=== PATIENT | female | born 1950 | race Caucasian/White ===

== ENCOUNTER 2017-02-19 11:22 | Emergency (ER) | payer OTHER ==
[~2017-02-19 11:22] MED LIST: CARDU2 PO; CENTRUM TAB1 TAB PO; CLARIT10 PO; CORDARONE PO; COZAAR100 MG PO; DEMA100 PO; GLUCXL10 PO; HALF81 PO; KLOR-CON M2020 MEQ PO; LANTUS SC; LOP100 PO; MAGOX4 PO; MUCINEX1200 MG PO; TOPXL100 PO; Z100 PO; ZOCOR10 PO
== END 2017-02-19 12:39 | disposition home or self-care (01) ==
LOC: ER 11:22
PROC: 2W3QX1Z Immobilization of Right Lower Leg using Splint (ICD-10-PCS; principal; 2017-02-19)
DX: M17.11 Unilateral primary osteoarthritis, right knee (principal); I11.0 Hypertensive heart disease with heart failure; I50.9 Heart failure, unspecified; E11.9 Type 2 diabetes mellitus without complications; Z95.1 Presence of aortocoronary bypass graft; Z88.8 Allergy status to other drugs, medicaments and biological substances; Z79.82 Long term (current) use of aspirin; Z79.84 Long term (current) use of oral hypoglycemic drugs; Z79.4 Long term (current) use of insulin; Z79.899 Other long term (current) drug therapy
CPT/HCPCS: 73560-RT; 99283